=== PATIENT | female | born 1960 | race Caucasian/White ===

== ENCOUNTER 2022-08-02 18:50 | Emergency (ER) | payer OTHER ==
[2022-08-02 19:13] VITALS: TEMP 97.9; BMI 25.8
[2022-08-02 20:12] LABS: INR 0.97 (0.83-1.09); PROTHROMBIN TIME (PATIENT) 11.2 SEC (9.7-13.0)
[2022-08-02 20:14] LABS: HEMATOCRIT 39.1 % (32.4-45.2); HEMOGLOBIN 13.5 G/dL (10.7-15.3); MCHC 34.5 g/dl (32.0-36.0); MEAN PLT VOLUME 8.1 fl (7.5-11.1); PLATELET COUNT 290.5 10^3/uL (134-434); RBC 4.49 10^6/uL (3.60-5.2); RDW 14.4 % (11.6-15.6); WHITE BLOOD COUNT 7.9 10^3/uL (4.0-10.8)
[2022-08-02 20:17] VITALS: BP 165/95; PULSE 92; RESP 16
[2022-08-02 20:19] LABS: ALBUMIN 4.5 g/dl (3.4-5.0); BILIRUBIN,TOTAL 0.7 mg/dl (0.2-1); CALCIUM 9.3 mg/dl (8.5-10); CREATININE 0.8 mg/dl (0.55-1.3); TOT PROT 7.8 g/dl (6.4-8.2)
[2022-08-02 21:42] LABS: PLATELET ESTIMATE ADEQUATE
== END 2022-08-02 22:31 | disposition home or self-care (01) ==
LOC: FER 18:50
DX: N93.9 Abnormal uterine and vaginal bleeding, unspecified (principal)
CPT/HCPCS: 36415; 76830-TC; 80053; 85027; 85610; 99284-25